=== PATIENT | female | born 1960 | race Caucasian/White ===

== ENCOUNTER → 2018-03-26 | Outpatient (CLI) | payer OTHER ==
[~2018-03-26] MED LIST: ACETAMINOPHEN325 M1 PO; AZMACORT20 G1 INH; PROVENTIL INH
== END ==
LOC: M.ULTRA 03-20 16:12 → M.RAD 09:20
DX: N63.13 Unspecified lump in the right breast, lower outer quadrant (principal); N63.0 Unspecified lump in unspecified breast

== ENCOUNTER → 2018-06-20 | Outpatient (CLI) | payer OTHER ==
--- NOTE | 2018-06-27 21:42 | SLEEP ---
[address] [address] SLEEP STUDY REPORT Name: STANISLAV GUTIÉRREZ Room: [facility]#: [id number] Admission: 06/20/18 Attend Phys: Shruthi Atkinson Discharge: Date of : 62 Report #: [id number] THIS REPORT FOR: //name// CC: Emily Gallegos DO This study has been reviewed in its entirety by a board certified sleep specialist DATE OF SERVICE: 06/21/2018 ATTENDING PHYSICIAN: Emily Gallegos DO. The patient is 58 years old, who weighs 201 pounds with a BMI of 33.4. The patient underwent home sleep study performed at [facility]. Total recording time was 525 minutes. During the night study, the patient had 65 obstructive apneas, no central or mixed apneas and 136 hypopneas. The patient's apnea-hypopnea index was 23 per hour with a supine index of 26 per hour. Nocturnal oximetry study revealed an average oxygen saturation of 93% with the lowest of 61%. 32 minutes were spent in oxygen saturation of less than 90% and another 9 minutes with saturation of less than 85% and another 4 minutes with saturation of less than 80%. Mean heart rate was 57 beats per minute with a maximum of 88 beats per minute. IMPRESSION: 1. Moderate sleep apnea-hypopnea syndrome with an AHI of 23 per hour. 2. Moderate nocturnal hypoxia secondary to obstructive sleep apnea. RECOMMENDATIONS: 1. The patient would benefit from treatment of sleep apnea with either oral appliance as recommended by the dentist versus a trial of CPAP. 2. Once the patient is optimally treated, then follow up in 4-6 weeks to assess compliance with treatment and to document clinical improvement. 3. Weight loss is strongly advised. 4. Avoid CONTINUOUS PILLOWCASE CUTTER depressants. 5. Cautioned regarding driving until symptoms of sleep apnea resolve with the above recommendations. <ELECTRONICALLY SIGNED> By: Alberto Jeffries MD 06/27/18 2142 1730 [id number] Jeffries MD /nt
== END ==
LOC: M.SLEEPLAB 13:15
DX: G47.33 Obstructive sleep apnea (adult) (pediatric) (principal); G47.34 Idiopathic sleep related nonobstructive alveolar hypoventilation

== ENCOUNTER 2019-01-24 12:15 | Emergency (ER) | payer OTHER ==
[~2019-01-24] VITALS: Ht 165.1 cm; Wt 92.5 kg
[2019-01-24] MEDS ORDERED: WELLBUTRIN 75 M75 M1 PO (12:36)
[2019-01-24] MEDS ORDERED: SYMBICORT160 MCG/4. (12:37)
[2019-01-24] MEDS ORDERED: LEXAPRO 10 MG T10 M2 PO (12:37)
[2019-01-24 13:56] LABS: ABSOLUTE EOSINOPHILS 0.1 thou/uL (0.0-0.7); ABSOLUTE LYMPHOCYTES 1.2 thou/uL (0.8-5.3); ABSOLUTE MONOCYTES 0.6 thou/uL (0.0-1.2); ABSOLUTE NEUTROPHILS 4.5 thou/uL (1.6-8.1); BASOPHILS 0.6 %; EOSINOPHILS 1.6 %; HEMATOCRIT 38.6 % (37.0-47.0); LYMPHOCYTES 18.7 %; MCHC 33.6 g/dL (28.0-37.0); MCV 83.4 fL (80.0-100.0); MONOCYTES 9.9 %; MPV 7.4 fl. (7.2-11.1); NUCLEATED RBCS 0 /100WBC; PLATELET COUNT* 265 thou/uL (150-400); POLYS 69.2 %; RBC 4.63 mil/uL (4.20-5.00); RDW-CV 14.2 % (10.5-14.5); WBC 6.5 thou/uL (4.0-11.0)
[2019-01-24 14:01] LABS: BE -2.2 mmol/L (-2 to +3); PCO2 20.4 mmHg (35.0-45.0); PO2 121.7 mmHg (75.0-100.0)
[2019-01-24 14:04] LABS: CALCIUM 8.8 mg/dL (8.5-10.1); CREATININE 0.7 mg/dL (0.6-1.3); POTASSIUM 3.6 mmol/L (3.5-5.1)
[2019-01-24 14:07] LABS: APTT 25.7 Seconds (25.0-31.3); PROTIME 10.4 Seconds (9.20-11.50)
[2019-01-24 14:08] LABS: ALBUMIN 3.7 g/dL (3.4-5.0); TOTAL BILIRUBIN 0.4 mg/dL (<0.1-1.0); TOTAL PROTEIN 7.7 g/dL (6.4-8.2)
[2019-01-24] MEDS ORDERED: IPRAT-ALBUT 0.5-3 ML INH (16:13)
[2019-01-24] MEDS ORDERED: PREDNISONE 10 M10 M1 PO (16:13)
[2019-01-24 16:45] VITALS: BP 159/80
== END 2019-01-24 16:47 | disposition home or self-care (01) ==
LOC: M.ERS 12:15
PROVIDERS: Personal Emergency Response Attendant
DX: J45.901 Unspecified asthma with (acute) exacerbation (principal); K21.9 Gastro-esophageal reflux disease without esophagitis; F41.9 Anxiety disorder, unspecified; F32.9 Major depressive disorder, single episode, unspecified

== ENCOUNTER 2020-02-13 14:08 | Emergency (ER) | payer OTHER ==
[~2020-02-13] VITALS: Ht 165.1 cm; Wt 90.7 kg
[~2020-02-13 14:08] MED LIST changes: +IPRAT-ALBUT 0.5-3 ML INH; +LEXAPRO 10 MG T10 M2 PO; +PREDNISONE 10 M10 M1 PO; +SYMBICORT160 MCG/4.; +WELLBUTRIN 75 M75 M1 PO
[2020-02-13 14:31] LABS: ABSOLUTE LYMPHOCYTES 0.5 thou/uL (0.8-5.3); ABSOLUTE MONOCYTES 0.5 thou/uL (0.0-1.2); ABSOLUTE NEUTROPHILS 5.2 thou/uL (1.6-8.1); BASOPHILS 0.1 %; EOSINOPHILS 0.2 %; HEMATOCRIT 39.3 % (37.0-47.0); HEMOGLOBIN 13.1 gm/dL (12.0-15.0); LYMPHOCYTES 8.3 %; MCH 27.8 pg (26.0-34.0); MCHC 33.2 g/dL (28.0-37.0); MCV 83.8 fL (80.0-100.0); MONOCYTES 8.1 %; MPV 7.4 fl. (7.2-11.1); NUCLEATED RBCS 0 /100WBC; PLATELET COUNT* 206 thou/uL (150-400); POLYS 83.3 %; RBC 4.69 mil/uL (4.20-5.00); RDW-CV 14.4 % (10.5-14.5); WBC 6.2 thou/uL (4.0-11.0)
[2020-02-13 14:45] LABS: ALBUMIN 3.8 g/dL (3.4-5.0); CALCIUM 8.9 mg/dL (8.5-10.1); CREATININE 0.9 mg/dL (0.6-1.3); POTASSIUM 3.5 mmol/L (3.5-5.1); TOTAL BILIRUBIN 0.4 mg/dL (<0.1-1.0); TOTAL PROTEIN 7.7 g/dL (6.4-8.2)
[2020-02-13 16:48] LABS: BE 0.2 mmol/L (-2 to +3); PCO2 20.3 mmHg (35.0-45.0); PO2 98.2 mmHg (75.0-100.0)
[2020-02-13 16:50] LABS: pH 7.603 (7.340-7.450)
--- NOTE | 2020-02-13 17:07 | EKG ---
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1960 Requested By: Dominick Saucedo Order Number: [id number] MD: Chaitanya Bolden Measurements Intervals [place] Rate: 67 P: 63 W[place]: 137 QRS: -10 QRSD: 137 T: 25 QT: 401 QTc: 424 Interpretive Statements Sinus rhythm Right bundle branch block No previous ECG available for comparison Electronically Signed On 02-13-2020 17:07:25 TIMBER CUTTER by Chaitanya Bolden [email or web address] <ELECTRONICALLY SIGNED> By: Chaitanya Bolden MD, [facility] 02/13/20 1707 1414 1414 Chaitanya Bolden MD, [facility] /EPI
[2020-02-13] MEDS ORDERED: ZPAK PO (17:59)
[2020-02-13] MEDS ORDERED: PROAIR HFA8.5 GM INH (17:59)
[2020-02-13] MEDS ORDERED: PREDNISONE 20 M20 MG PO (17:59)
[2020-02-13] MEDS ORDERED: XANAX 0.5 MG0.5 MG PO (17:59)
[2020-02-13] MEDS ORDERED: ALBUTEROL2.5 MG/0.1 INH (18:05)
[2020-02-13 18:13] VITALS: BP 113/70
== END 2020-02-13 18:14 | disposition home or self-care (01) ==
LOC: M.ERS 14:08
PROVIDERS: Physician Assistant
DX: U07.1 COVID-19 (principal); F41.9 Anxiety disorder, unspecified; J18.9 Pneumonia, unspecified organism; K21.9 Gastro-esophageal reflux disease without esophagitis; J45.909 Unspecified asthma, uncomplicated; Z88.2 Allergy status to sulfonamides; Z88.8 Allergy status to other drugs, medicaments and biological substances

== ENCOUNTER → 2020-03-29 | Outpatient (CLI) | payer OTHER ==
[~2020-03-29] MED LIST changes: +ALBUTEROL2.5 MG/0.1 INH; +DEXAMETHASONE1 MG PO; +DOXYCYCLINE 10100 MG PO; +PREDNISONE 20 M20 MG PO; +PROAIR HFA8.5 GM INH; +PROTONIX40 M4 PO; +XANAX 0.5 MG0.5 MG PO; +ZPAK PO
--- NOTE | 2020-03-29 14:08 | 2DMMODE ---
[place] [address] 2 D/M-MODE ECHOCARDIOGRAM Name: STANISLAV GUTIÉRREZ Room: [facility]#: [id number] Admission: 03/29/20 Attend Phys: Cleo Calderon Discharge: Date of : 62 Date of Service: 03/29/20 1407 Report #: [id number] THIS REPORT FOR: cc: Emily Gallegos Linda J. DO Holkins,Edson Roldan MD [facility] ~ APPROVED REPORT Study performed: 03/29/2020 12:54:45 EXAM: Comprehensive 2D, Doppler, and color-flow Echocardiogram Patient Location: Out-Patient BSA: 1.97 HR: 77 bpm BP: 159/99 mmHg Other Information Study Quality: Good Indications Dyspnea 2D Dimensions IVSd: 9.60 (7-11mm) LVOT Diam: 20.46 (18-24mm) LVDd: 45.49 mm PWd: 9.59 (7-11mm) Ascending Ao: 34.77 (22-36mm) LVDs: 25.36 (25-40mm) Aortic Root: 33.01 mm Volumes Left Atrial Volume (Systole) LA ESV Index: 18.60 mL/m2 Aortic Valve AoV Peak Mane.: 1.34 m/s AO Peak Gr.: 7.16 mmHg LVOT Max P.28 mmHg AO Mean Gr.: 3.75 mmHg LVOT Mean P.50 mmHg LVOT Max V: 1.15 m/s AO V2 VTI: 22.71 cm LVOT Mean V: 0.72 m/s RYANNE (VTI): 3.33 cm2 LVOT V1 VTI: 23.02 cm Mitral Valve E/A Ratio: 0.65 [place] [address] 2 D/M-MODE ECHOCARDIOGRAM Name: STANISLAV GUTIÉRREZ Room: [facility]#: [id number] Admission: 03/29/20 Attend Phys: Cleo Calderon Discharge: Date of : 62 Date of Service: 03/29/20 1407 Report #: [id number] MV Decel. Time: 281.78 ms MV E Max Mane.: 0.48 m/s MV PHT: 81.72 ms MVA (PHT): 2.69 cm2 TDI E/Lateral E': 5.33 E/Medial E': 6.00 Medial E' Mane.: 0.08 m/s Lateral E' Mane.: 0.09 m/s Pulmonary Valve PV Peak Mane.: 0.99 m/s PV Peak Gr.: 3.90 mmHg Left Ventricle The left ventricle is normal size. There is normal LV segmental wall motion. There is normal left ventricular wall thickness. Left ventricular systolic function is normal. The left ventricular ejection fraction is within the normal range. LVEF is 55-60%. Grade I - abnormal relaxation pattern. Right Ventricle The right ventricle is normal size. The right ventricular systolic function is normal. Atria The left atrium size is normal. The right atrium size is normal. Aortic Valve The aortic valve is normal in structure. No aortic regurgitation is present. There is no aortic valvular stenosis. Mitral Valve The mitral valve is normal in structure. Trace mitral regurgitation. No evidence of mitral valve stenosis. Tricuspid Valve The tricuspid valve is normal in structure. There is no tricuspid valve regurgitation noted. Pulmonic Valve The pulmonary valve is normal in structure. There is no pulmonic valvular regurgitation. Great Vessels The aortic root is normal in size. IVC [place] [address] 2 D/M-MODE ECHOCARDIOGRAM Name: GUTIÉRREZSTANISLAV Florentino Room: [facility]#: [id number] Admission: 03/29/20 Attend Phys: Cleo Calderon Discharge: Date of : 62 Date of Service: 03/29/20 1407 Report #: [id number] collapses >50% with inspiration. Pericardium There is no pericardial effusion. <Conclusion> The left ventricle is normal size. There is normal left ventricular wall thickness. Left ventricular systolic function is normal. The left ventricular ejection fraction is within the normal range. LVEF is 55-60%. Grade I - abnormal relaxation pattern. The right ventricle is normal size. The left atrium size is normal. The aortic valve is normal in structure. The mitral valve is normal in structure. The tricuspid valve is normal in structure. IVC is normal in size and collapses >50% with inspiration. There is no pericardial effusion. There is normal LV segmental wall motion. <ELECTRONICALLY SIGNED> By: Edson Mujica MD, FACC 03/29/20 1407 1407 140 Edson Mujica MD, FACC /INF
== END ==
LOC: M.CRD 13:00
PROVIDERS: ATTEND Nurse Practitioner
DX: J45.51 Severe persistent asthma with (acute) exacerbation (principal); R53.83 Other fatigue; Z86.16 Personal history of COVID-19

== ENCOUNTER → 2020-06-03 | Outpatient (CLI) | payer OTHER ==
[~2020-06-03] MED LIST changes: +AMBIEN 10 MG TA10 MG PO; +COZAAR 25 MG TA25 M2 PO; +FISH OIL 1,001000 M3 PO; +GUAIFENESIN-CODE5 ML PO; +SERTRALINE HCL100 MG PO; +SUPER THERAVIT1 EACH PO; -SYMBICORT160 MCG/4.; +SYMBICORT80 MCG/4.1 INH
--- NOTE | 2020-06-10 11:31 | PF ---
[address] [address] PULMONARY FUNCTION REPORT Name: BROCKSTANISLAV Florentino Room: [facility]#: [id number] Admission: 06/03/20 Attend Phys: Bridger Nielsen MD Discharge: Date of : 62 Report #: [id number] THIS REPORT FOR: cc: Emily Gallegos Linda J. DO Pervez, Adeel MD ~ DOC #: [id number] Bridger Nielsen MD DATE OF VISIT: 06/03/2020 The FEV1/FVC ratio is normal at 79% with an FVC normal at 94%. The FEV1 is also normal at 96%. The FEF 25-75 is normal at 87%. After the administration of a bronchodilator, there is no significant increase in any of these values. The patient's FEV1 is 2.57 liters. This does not increase after the administration of a bronchodilator. The total lung capacity is normal at 82% with a residual volume decreased at 48%. The DLCO as adjusted for hemoglobin is 52%. IMPRESSION: 1. The spirometry is normal. 2. There is an isolated reduction in residual volume to 48%. This could be a normal variant or could indicate a mild restriction. 3. The DLCO as adjusted for hemoglobin is decreased to 52%. 4. There is mild concavity of the flow volume loop upwards. This could be a normal variant or could indicate minimal obstruction. Bridger Nielsen MD /NANCY <ELECTRONICALLY SIGNED> By: Bridger Nielsen MD 06/10/20 1131 0556 2044Abriana Nielsen MD /nt
== END ==
LOC: M.PUL 11:30
PROVIDERS: ATTEND Internal Medicine Critical Care Medicine
DX: J45.901 Unspecified asthma with (acute) exacerbation (principal); R06.02 Shortness of breath; Z88.8 Allergy status to other drugs, medicaments and biological substances

== ENCOUNTER → 2020-06-10 | Outpatient (CLI) | payer OTHER ==
--- NOTE | 2020-07-06 11:30 | SLEEP ---
[place] [address] SLEEP STUDY REPORT Name: BROCKSTANISLAV Florentino Room: [facility]#: [id number] Admission: 06/10/20 Attend Phys: Bridger Nielsen MD Discharge: Date of : 62 Report #: [id number] THIS REPORT FOR: cc: Emily Gallegos Linda J. DO Pervez, Adeel MD ~ DOC #: [id number] Bridger Nielsen MD DATE OF STUDY: 06/10/2020 SLEEP STUDY INDICATION FOR SLEEP STUDY: Excessive daytime sleepiness. INTERPRETATION: Total duration of the study is 457 minutes out of which she was asleep for 248 minutes with an overall sleep efficiency of 53%. Sleep onset initially occurred 9 minutes after lying down in bed. There is no REM sleep recorded. N1 sleep duration is 59%, N2 duration is 34% and N3 duration is 7%. We did record multiple sleep-related respiratory events during the sleep study. These included 2 central apneas, 18 obstructive apneas, 149 hypopneas and 7 respiratory effort related arousals. Overall, hypopnea index was 40.9. BODY POSITION DATA: Indicates the patient was observed asleep in the supine position for 190 minutes, the rest of the time she was on the left side. Events did appear to be more common when she was lying supine. Supine apnea-hypopnea index is 52.1 and heart rate is 62. There are no periodic limb movements recorded. Arousal index is mildly elevated to 29. There are multiple desaturations recorded; however, the patient's O2 saturation mostly was maintained at or above 88% and was below 88% for only 3.4 minutes during the sleep study, but was below 90% for 15 minutes during the sleep study. IMPRESSION: Obstructive sleep apnea with an apnea-hypopnea index of 40.9. Events were more common when the patient is lying supine. No REM sleep was recorded during the sleep study. RECOMMENDATIONS: 1. Recommend proceeding to a repeat sleep study for positive airway pressure titration. 2. Recommend weight loss. 3. Recommend avoiding driving or other activities, requiring vigilance if drowsy. This sleep study was reviewed by board certified sleep physician. [place] [address] SLEEP STUDY REPORT Name: STANISLAV GUTIÉRREZ Room: [facility]#: [id number] Admission: 06/10/20 Attend Phys: Bridger Nielsen MD Discharge: Date of : 62 Report #: [id number] AP/RAN <ELECTRONICALLY SIGNED> By: Bridger Nielsen MD 07/06/20 1130 0642 0744MD cassie Gross
== END ==
LOC: M.SLEEPLAB 19:51
PROVIDERS: ATTEND Internal Medicine Critical Care Medicine
DX: G47.19 Other hypersomnia (principal)

== ENCOUNTER → 2020-07-23 | Outpatient (CLI) | payer OTHER | LOC: M.SLEEPLAB 07-20 21:00 | PROVIDERS: ATTEND Internal Medicine Critical Care Medicine | DX: G47.33 Obstructive sleep apnea (adult) (pediatric) (principal) ==

== ENCOUNTER → 2020-10-29 | Outpatient (CLI) | payer OTHER | LOC: M.CT 12:57 | PROVIDERS: ATTEND Family Medicine | DX: N28.1 Cyst of kidney, acquired (principal); M41.80 Other forms of scoliosis, site unspecified; M54.5 Low back pain; R31.9 Hematuria, unspecified; Z90.49 Acquired absence of other specified parts of digestive tract ==

== ENCOUNTER → 2020-10-30 | Outpatient (CLI) | payer OTHER ==
--- NOTE | 2020-11-23 08:45 | SLEEP ---
[address] [address] SLEEP STUDY REPORT Name: BROCKSTANISLAV GUTHRIE Room: [facility]#: [id number] Admission: 10/30/20 Attend Phys: Bridger Nielsen MD Discharge: Date of : 62 Report #: [id number] THIS REPORT FOR: cc: Emily Gallegos Linda J. DO Pervez, Adeel MD ~ DATE OF STUDY: 10/30/2020 SLEEP STUDY INDICATION FOR SLEEP STUDY: Obstructive sleep apnea, severe. The patient was inadequately controlled with CPAP during the previous CPAP titration. INTERPRETATION: Total duration of the study is 443 minutes, out of which she was asleep for 322 minutes, and an overall sleep efficiency of 73%. Sleep onset initially occurred around 16 minutes of lying down in bed and REM onset was 186 minutes after sleep onset. N1 sleep duration is 28%, N2 duration is 53%, there is no N3 sleep recorded, and REM duration is 19%. Mean heart rate is 55. There are no significant periodic limb movements recorded. The calculated arousal index is normal at 6.7, although it is noted that on the hypnogram, there are multiple episodes of stage wake noted throughout the sleep study. Wake after sleep onset time was 104 minutes. Mean heart rate is 55. The patient is noted to have undergone a CPAP titration and review of the CPAP titration indicates the patient was titrated beginning with a CPAP pressure of 8 cm of water, gradually increasing it to 17 cm of water. Occasional hypopneas continue to occur throughout this sleep study; however, towards the end of the sleep study, the patient was on 17 cm of water CPAP and was in the supine position and we recorded both sustained REM as well as non-REM sleep. Apnea-hypopnea index was 0.6 at this point and an O2 saturation was adequately maintained with this therapy. IMPRESSION: Severe obstructive sleep apnea with significant improvement noted with the administration of a CPAP of 17 cm of water. REM supine sleep was recorded on the final CPAP pressure. There is some limitation in evaluation due to the presence of multiple episodes of stage awake throughout the sleep study. Calculated sleep efficiency is mildly decreased to 72.7% and calculated arousal index is normal. RECOMMENDATIONS: For now, I will go ahead and place the patient on a CPAP 17 cm of water with heated humidity, and per patient preference while asleep during the sleep study, Respironics DreamWear full face mask was used, size medium. We will plan to reevaluate the patient with memory card data in the office in case the patient does not have an adequate response to CPAP therapy, [place] [address] SLEEP STUDY REPORT Name: STANISLAV GUTIÉRREZ Room: [facility]#: [id number] Admission: 10/30/20 Attend Phys: Bridger Nielsen MD Discharge: Date of : 62 Report #: [id number] would consider bringing the patient back to the sleep lab in a few months again for a repeat BiPAP titration. Recommend weight loss. Recommend avoiding driving and other activities requiring vigilance if drowsy. This entire sleep study was reviewed by board certified sleep physician. <ELECTRONICALLY SIGNED> By: Bridger Nielsen MD 11/23/20 0845 2101 [id number] Nielsen MD /nt
== END ==
LOC: M.SLEEPLAB 09-18 21:00
PROVIDERS: ATTEND Internal Medicine Critical Care Medicine
DX: G47.33 Obstructive sleep apnea (adult) (pediatric) (principal)

== ENCOUNTER → 2021-03-31 | Outpatient (CLI) | payer OTHER | LOC: M.CT 10:54 | PROVIDERS: ATTEND Family Medicine | DX: J33.8 Other polyp of sinus (principal); J32.0 Chronic maxillary sinusitis; R43.2 Parageusia; R43.0 Anosmia; Z78.0 Asymptomatic menopausal state ==